=== PATIENT | male | born 1945 | race Caucasian/White ===

== ENCOUNTER 2017-02-28 08:27 | Day surgery (SDC) | payer MEDICARE ==
[2017-02-27 12:10] LABS: ASPARTATE AMINO TRANSFERASE 29 U/L (15-37); BLOOD UREA NITROGEN 21 mg/dL (7-18)
[~2017-02-28] VITALS: Ht 170.2 cm; Wt 74.1 kg
[~2017-02-28 08:27] MED LIST: ASPI-496 PO; ATOR80TA75 PO; LOSA50TA6 PO; OMEG1CAP26 PO; UBID100C24 PO
[2017-02-28 09:04] VITALS: BP 131/85
[2017-02-28] MEDS ORDERED: LACTATED RINGERS 1,000 ML IV SCH (09:04)
[2017-02-28] MEDS ORDERED: BACITRACIN 50,000 UNIT ONE (09:55)
[2017-02-28] MEDS ORDERED: BUPIVACAINE/PF 0.25% ONE (09:55)
[2017-02-28] MEDS ORDERED: EPINEPHRINE 1 MG/ML, 1ML ONE (09:55)
[2017-02-28] MEDS ORDERED: FENTANYL PF 250 MCG/5ML ONE (10:08)
[2017-02-28] MEDS ORDERED: KETAMINE 10 MG/ML, 20ML ONE (10:09)
[2017-02-28] MEDS ORDERED: MIDAZOLAM 1 MG/ML, 2ML ONE (10:09)
[2017-02-28] MEDS ORDERED: PROMETHAZINE 25 MG/ML, 1ML IV PRN (11:30)
[2017-02-28] MEDS ORDERED: ACETAMINOPHEN 325 MG TABLET PO PRN (11:30)
[2017-02-28] MEDS ORDERED: HYDROmorphone 1 MG/ML, 1ML IV PRN (11:30)
[2017-02-28] MEDS ORDERED: OXYcodone 5 MG/5 ML ORAL.SOL UDC PO PRN (11:30)
[2017-02-28] MEDS ORDERED: ACETAMINOPHEN 650 MG/20.3 ML UDC ONE (11:48)
[2017-02-28] MEDS ORDERED: FENTANYL PF 100 MCG/2ML ONE (11:48)
[2017-02-28] MEDS ORDERED: OXYcodone 5 MG/5 ML ORAL.SOL UDC ONE (11:48)
[2017-02-28] MEDS: FENTANYL PF 100 MCG/2ML IV PRN ×3 (11:50→12:18)
[2017-02-28] MEDS ORDERED: KETOROLAC 30 MG/1 ML ONE (12:29)
[2017-02-28] MEDS ORDERED: KETOROLAC 30 MG/1 ML IVPush ONE ×2 (13:00)
[2017-02-28] MEDS ORDERED: DEXAMETHASONE 4 MG/ML, 1ML ONE (16:38)
[2017-02-28] MEDS ORDERED: ONDANSETRON 2MG/ML, 2ML ONE (16:38)
[2017-02-28] MEDS ORDERED: PROPOFOL 10 MG/ML, 20ML ONE (16:38)
[2017-02-28] MEDS ORDERED: CEFAZOLIN 1,000 MG ONE (16:38)
== END 2017-02-28 14:20 ==
LOC: OUT 08:27
PROVIDERS: ATTEND Surgery
DX: G58.8 Other specified mononeuropathies (principal); I25.10 Atherosclerotic heart disease of native coronary artery without angina pectoris; I10 Essential (primary) hypertension; E78.5 Hyperlipidemia, unspecified; Z79.82 Long term (current) use of aspirin; Z88.6 Allergy status to analgesic agent; Z88.5 Allergy status to narcotic agent; Z88.8 Allergy status to other drugs, medicaments and biological substances
CPT/HCPCS: 36415; 55899; 64708; 71020; 80053; 85025; 93005; J0171; J0690; J1100; J1885; J2250; J2405; J2704; J3010; J3490; J7120